=== PATIENT | female | born 1945 | race Caucasian/White ===

== ENCOUNTER 2017-01-18 09:19 | Inpatient (IN) | payer OTHER ==
[2016-12-08 14:36] VITALS: BMI 29.0
--- NOTE | 2016-12-08 15:06 | PAT Medication Instructions ---
Service Date Dec 08, 2016. Current Home Medication List Atorvastatin (Lipitor), 40 MG PO QPM Calcitriol (Rocaltrol Cap), 0.5 MCG PO QPM Carvedilol (Coreg), 1 TAB PO BID Cholecalciferol (Vitamin D3), 1 TAB PO BID Flecainide (Tambocor), 100 MG PO BID Furosemide (Lasix), 40 MG PO QAM Hydrocodone/Acetaminophen 10MG/325MG ([place] 10MG/325MG), 1-2 TABS PO Q4H PRN for Pain Levothyroxine Sodium (Levothyroxine Sodium), 1 TAB PO QAM Pantoprazole (Protonix), 40 MG PO QAM Warfarin Sod (Coumadin), 1 TAB PO QAM Medication Instructions For Your Scheduled Surgery - Instructions to be given by prescribing physician (Dr. Boggs): Warfarin Sod (Coumadin), 1 TAB PO QAM - Hold the following medications the morning of surgery: Furosemide (Lasix), 40 MG PO QAM Cholecalciferol (Vitamin D3), 1 TAB PO BID - Take the following medications the morning of surgery with a sip of water OTHERWISE NOTHING TO EAT OR DRINK AFTER MIDNIGHT: Levothyroxine Sodium (Levothyroxine Sodium), 1 TAB PO QAM Pantoprazole (Protonix), 40 MG PO QAM Carvedilol (Coreg), 1 TAB PO BID Flecainide (Tambocor), 100 MG PO BID Hydrocodone/Acetaminophen 10MG/325MG ([place] 10MG/325MG), 1-2 TABS PO Q4H PRN for Pain (may take if needed up to 4 hours prior to surgery) - Take the following medications as scheduled the night before surgery: Atorvastatin (Lipitor), 40 MG PO QPM Calcitriol (Rocaltrol Cap), 0.5 MCG PO QPM Carvedilol (Coreg), 1 TAB PO BID Flecainide (Tambocor), 100 MG PO BID Cholecalciferol (Vitamin D3), 1 TAB PO BID Hydrocodone/Acetaminophen 10MG/325MG ([place] 10MG/325MG), 1-2 TABS PO Q4H PRN for Pain If you have any questions please call us at [phone] or [phone] or [phone]
[2016-12-08 15:32] LABS: BASO % 0.1 %; BASO ABS # 0.01 K/uL (0-0.2); COMPLETE YES; EOS % 2.1 %; HEMATOCRIT 37.5 % (37-47); IG% 0.4 %; LYMPH % 27.9 %; LYMPH ABS # 2.02 K/uL (1.2-3.4); MEAN CELL VOLUME 90.8 fL (80-100); MEAN CORPUSCULAR HEMOGLOBIN 30.5 pg (25-34); MEAN CORPUSCULAR HGB CONC 33.6 g/dl (32-36); MEAN PLATELET VOLUME 9.9 fL (7.4-10.4); MONO % 9.8 %; NEUT % 59.7 %; PLATELET COUNT 269 K/uL (130-400); RED BLOOD COUNT 4.13 M/uL (4.2-5.4); WHITE BLOOD COUNT 7.23 K/uL (4.8-10.8)
--- NOTE | 2016-12-08 15:33 | DIAGNOSTIC IMAGING REPORT ---
CHEST 2 VIEWS ROUTINE CLINICAL HISTORY: Preoperative evaluation. COMPARISON STUDY: No previous studies for comparison. FINDINGS: Lung volumes are normal. There is no pneumothorax or pleural effusion. There is moderate enlargement of the cardiac silhouette. Patient is rotated. Left heart border is obscured. IMPRESSION: 1. No acute cardiopulmonary findings. 2. Moderate enlargement of the cardiac silhouette. Electronically signed by: Poli Cruz M.D. 12/08/2016 3:32 PM Dictated Date/Time: 12/08/2016 3:30 PM
[2016-12-08 15:52] LABS: URINE APPEARANCE CLOUDY (CLEAR); URINE BILIRUBIN NEG (NEG); URINE COLOR DK YELLOW; URINE EPITHELIAL CELL AUTO >30 /lpf (0-5); URINE NITRITE NEG (NEG); URINE SPECIFIC GRAVITY 1.027 (1.000-1.030); UROBILINOGEN NEG (NEG); ZZUR CULT IF INDIC CLEAN CATCH NO
[2016-12-08 15:59] LABS: INR 2.6 (0.9-1.1); PARTIAL THROMBOPLASTIN RATIO 1.9; PROTHROMBIN TIME (PATIENT) 28.5 SECONDS (9.0-12.0)
[2016-12-08 16:00] LABS: MANUAL MICROSCOPIC REQUIRED? NO; REVIEW REQ? NO
[2016-12-08 16:43] LABS: CALCIUM 9.6 mg/dl (8.5-10.1); CREATININE 1.2 mg/dl (0.60-1.20); POTASSIUM 3.7 mmol/L (3.5-5.1)
--- NOTE | 2017-01-04 16:14 | History and Physical ---
History & Physical Date Jan 04, 2017. Chief Complaint left knee pain History of Present Illness The patient is a 71 year old female with complaints of left knee pain x several year. Patient rates her pain a 7-8/10 at worst. Patient has failed PT, injections, and narcotics. She is scheduled for left TKA. Additional History Hepatic Disease: No Endocrine Disorder: No Kidney Disease: No Hypertension: No Heart Disease: No Bleeding Tendencies: No Infectious Diseases: No Other: Afib Thyroid disease Hypercholesterolemia Denies CAD, DM DVT Allergies Coded Allergies: Aspirin (Verified Allergy, Unknown, SHORTNESS OF BREATH, DIFFICULTY BREATHING, 12/08/16) Home Medications Scheduled Atorvastatin (Lipitor), 40 MG PO QPM Calcitriol (Rocaltrol Cap), 0.5 MCG PO QPM Carvedilol (Coreg), 1 TAB PO BID Cholecalciferol (Vitamin D3), 1 TAB PO BID Flecainide (Tambocor), 100 MG PO BID Furosemide (Lasix), 40 MG PO QAM Levothyroxine Sodium (Levothyroxine Sodium), 1 TAB PO QAM Pantoprazole (Protonix), 40 MG PO QAM Warfarin Sod (Coumadin), 1 TAB PO QAM Scheduled PRN Hydrocodone/Acetaminophen 10MG/325MG ([place] 10MG/325MG), 1-2 TABS PO Q4H PRN for Pain Physical Examination Skin: warm/dry, no rash Eyes: normal inspection, EOMI, sclerae normal ENT: normal ENT inspection, pharynx normal Head: normocephalic, atraumatic Neck: supple, no adenopathy, trachea midline Respiratory/Chest: lungs clear, normal breath sounds, no respiratory distress Cardiovascular: regular rate, rhythm, no edema, no murmur Abdomen / GI: normal bowel sounds, non tender Back: normal inspection Extremities: normal inspection, normal range of motion, + pertinent finding ( neutral allignment, ROM 0-120, +1laxity ) Neurologic/Psych: no motor/sensory deficits, alert, normal reflexes, oriented x 3 Diagnosis DJD left knee Plan of Treatment Patient will be admitted for left TKA with Dr. Chung.
[2017-01-18] VITALS (9 sets, daily range): BP systolic 122–164; BP diastolic 68–77; PULSE 58–75; TEMP 36.4–36.6; O2SAT 97–100; Ht 170.2 cm; Wt 84.2 kg
[~2017-01-18] VITALS: Ht 170.2 cm; Wt 84.2 kg
[2017-01-18] MEDS: TRANEXAMIC ACID INJ 1,000 MG in SODIUM CHLORIDE 0.9% 100ML 100 ML IV SCH ×2 (06:30→11:39)
--- NOTE | 2017-01-18 08:08 | History & Physical Bridge Note ---
H&P Re-Evaluation Bridge Note: I have examined the patient, reviewed the History & Physical and in the interval since the performance of the History & Physical I have noted the following changes of clinical significance: No changes noted
[~2017-01-18 09:19] MED LIST: ACETAMINOPHEN 500 MG TAB PO SCH; ATOR-24 PO; ATROPINE SULFATE 0.1 MG/ML 5ML SYR IV PRN; BUPIVACAINE 0.25% 30 ML VIAL ONE; BUPIVACAINE 0.5 % 5 MG/1 ML PF 10ML VIAL ONE; CALC0.2510 PO; CARV12.52 PO; CEFAZOLIN 2000 MG/60 ML D5W 60 ML IV SCH; CHOL20007 PO; CMD5 PO; CeleBREX 200 MG CAP PO SCH; DEXAMETHASONE 4 MG TAB PO SCH; EpHEDrine SULFATE INJ 50 MG/ML AMP IV PRN; FAMOTIDINE 20 MG TAB PO SCH; FENTANYL CITRATE INJ 50 MCG/1 ML 2 ML VIAL IV PRN; FLEC100T21 PO; FRS/40 PO; GABAPENTIN 300 MG CAP PO SCH; HYDR-4079 PO; LACTATED RINGER'S 1000ML 1,000 ML IV SCH; LACTATED RINGER'S 1000ML IV SCH; LEVO100T7 PO; METOCLOPRAMIDE HCL 10 MG TAB PO SCH; ONDANSETRON INJ 2 MG/ML 2 ML VIAL IV PRN; PANT40TA PO; ROPIVACAINE 5MG/ML 30 ML 150 MG, BUPIVACAINE/EPINEPHR 0.5% MPF 30 ML, DEXAMETHASONE INJ... INFIL SCH; ROPIVACAINE 5MG/ML 30 ML 150 MG, BUPIVACAINE/EPINEPHR 0.5% MPF 30 ML, KETOROLAC TROMETH... INFIL SCH
[2017-01-18] MEDS ORDERED: FENTANYL CITRATE INJ 50 MCG/1 ML 2 ML VIAL ONE (10:14)
[2017-01-18] MEDS ORDERED: MIDAZOLAM HCL 1 MG/ML 2ML VIAL ONE (10:14)
[2017-01-18 10:17] LABS: PARTIAL THROMBOPLASTIN RATIO 1.3; PROTHROMBIN TIME (PATIENT) 10.9 SECONDS (9.0-12.0)
[2017-01-18] MEDS ORDERED: ORTHO JOINT ANESTHETIC ONE (11:49)
[2017-01-18] MEDS ORDERED: POVIDONE-IODINE OP SOLN 30 ML BTL ONE (11:49)
[2017-01-18] MEDS ORDERED: BACITRACIN 50000 UNIT VIAL ONE (11:49)
[2017-01-18] MEDS ORDERED: LIDOCAINE HCL 2% 2 ML VIAL (20MG/ML) ONE (12:27)
[2017-01-18] MEDS ORDERED: PROPOFOL IV EMULSION 10 MG/ML 20 ML VIAL IV ONE (12:27)
--- NOTE | 2017-01-18 13:19 | [facility] Operative Report ---
Operative Report Operative Date Jan 18, 2017. Pre-Operative Diagnosis Left Knee Degenerative Joint Disease Post-Operative Diagnosis Left Knee Degenerative Joint Disease Procedure(s) Performed Left Total Knee Arthroplasty, Cemented utilizing Fisher nephew journey to non-block Fisher & Nephew arthro-plasty size 4 femur 3 tibia Poly-[address] Chung [employer] Dies Surgeon(s) Zack Naidu PA-C Estimated Blood Loss 5 mL Findings Severe end-stage tricompartmental degenerative joint disease left knee not responsive to conservative management including physical therapy Roto-Rest activity modification and bracing and injections Specimens A: Left Knee Bone and Tissue Complication(s) None Disposition Recovery Room / PACU Indications Severe chronic compartmental degenerative joint disease left knee unresponsive to conservative therapy including physical therapy anti-inflammatories relative rest and activity modification and injections Description of Procedure After proper prepping and draping of the left lower extremity anterior midline incision was made over the region of the extensor extensor mechanism after meticulous hemostasis was obtained and maintained in subcutaneous tissues a medial parapatellar incision was made The patella was subluxed lateralward the medial lateral gutter were cleaned from any hypertrophic synovitis and scar tissue of the distal femoral block was placed and the distal femoral osteotomy cut was made subsequently the chamfers anterior and posterior osteotomy cuts were made utilizing the 4-in-1 block the tibia was subsequently subluxed anteriorward medial and ateral meniscal remnants were excised in their entirety remnants of the anterior and posterior cruciate ligaments were excised in their entirety excellent exposure of the proximal tibia was obtained the tibial osteotomy guide was placed on the proximal tibial osteotomy cut was made once again the knee was irrigated with copious amounts of sterile saline solution the patella was subsequently everted lateralward thickened scar tissue around the patella was removed the patella was subsequently cut utilizing a freehand technique and was drilled prepared for final preparation and placement of patella socially flexion-extension gaps were checked and the equal and symmetric trials were placed to the appropriate femoral and tibial trials with poly-spacer being placed for equal flexion and extension gaps and full range of motion including extension to 0 and flexion to 140 the trial components after having been taken to recovery range of motion was subsequently removed meticulous hemostasis was obtained and maintained subsequently a knee block injection of joint cocktail including ropivacaine 0.5% 150 mg. Bupivacaine 0.5 % epinephrine 1-200,030 mL's toradol 30 mg dexamethasone 4 mg ketamine 10 mg clonidine 100 micrograms normal saline solution 30 mg was infiltrated into the soft tissues of the posterior knee medial lateral gutters and periosteal synovium special attention was paid to protect neurovascular structures at all times subsequently trial components having been removed the knee was irrigated with sterile saline solution. debris was removed the proximal tibia was subsequently prepared and was made ready for the placement of the tibial component tibial component was also cemented and tamped into position the femoral component was subsequently placed and cemented in the position the patellar component was subsequently cemented in position because hemostasis once again obtained and maintained wound having been thoroughly irrigated with debridement and debridement lavage was performed as well as a medial parapatellar incision closed with #1 Vicryl in interrupted fashion subcutaneous was closed with #2 Vicryl skin was closed with skin clips. PA-C was necessary for prepping and drapping as well as wound closure of deep fascia Sub cutaneous tissue and skin and was necessary for the case. A sterile compressive dressing was placed patient was taken to recovery in stable condition of report dictated by Sheldon I attest to the content of the Intraoperative Record and any orders documented therein. Any exceptions are noted below. I attest to the content of the Intraoperative Record and any orders documented therein. Any exceptions are noted below.
[2017-01-18] MEDS ORDERED: MoRPHine SULFATE 2 MG/ML CARP IV PRN (14:00)
[2017-01-18] MEDS ORDERED: BISACODYL 10 MG SUPP PR PRN (14:00)
[2017-01-18] MEDS ORDERED: ALUMINUM/MAGNESIUM/SIMETH (MAALOX MAX) 30 ML UDC PO PRN (14:00)
[2017-01-18] MEDS ORDERED: MAGNESIUM HYDROXIDE SUSP 30 ML UDC PO PRN (14:00)
[2017-01-18] MEDS ORDERED: ONDANSETRON INJ 2 MG/ML 2 ML VIAL IV PRN (14:00)
[2017-01-18] MEDS ORDERED: MoRPHine SULFATE 4 MG/ML 1 ML CARP\\VIAL IV PRN (14:15)
[2017-01-18] MEDS ORDERED: MoRPHine SULFATE 10 MG/ML CARP/VIAL IV PRN (14:15)
--- NOTE | 2017-01-18 14:35 | DIAGNOSTIC IMAGING REPORT ---
LEFT KNEE 1 OR 2 VIEWS ROUTINE HISTORY: 71 years-old Female AP/LATERAL IN PACU LEFT KNEE left knee arthroplasty COMPARISON: None available TECHNIQUE: Frontal and crosstable lateral views of the left knee FINDINGS: Recent left total knee arthroplasty with patellar resurfacing. Alignment is satisfactory. There is no periprosthetic fracture. Expected postsurgical swelling and deep tissue air seen about the knee with surgical drain in place. No retained radiopaque foreign body is seen. IMPRESSION: Status post left total knee arthroplasty and patellar resurfacing with satisfactory alignment. The above report was generated using voice recognition software. It may contain grammatical, syntax or spelling errors. Electronically signed by: Harrison Valverde M.D. 01/18/2017 2:34 PM Dictated Date/Time: 01/18/2017 2:31 PM
--- NOTE | 2017-01-18 14:37 | Anesthesiology Progress Note ---
Anesthesia Post Op Note Date & Time Jan 18, 2017 at 14:37 Vital Signs Pain Intensity: 0 Vital Signs Past 12 Hours Date Time Temp Pulse Resp B/P (MAP) Pulse Ox O2 Delivery O2 Flow Rate FiO2 01/18/17 14:20 67 16 137/65 100 Nasal Cannula 2 01/18/17 14:10 70 16 131/65 100 Nasal Cannula 2 01/18/17 14:00 67 16 117/56 100 Mask 10 01/18/17 13:54 36.4 67 16 129/60 100 Mask 10 01/18/17 09:45 36.4 60 20 164/72 98 Room Air Notes Mental Status: alert / awake / arousable, participated in evaluation Pt Amnestic to Procedure: Yes Nausea / Vomiting: adequately controlled Pain: adequately controlled Airway Patency, RR, SpO2: stable & adequate BP & HR: stable & adequate Hydration State: stable & adequate Neuraxial Anesthesia: was administered, sensory block is resolving Anesthetic Complications: no major complications apparent
[2017-01-18] MEDS ORDERED: WARFARIN SOD 5 MG TAB PO ONE (16:00)
[2017-01-18] MEDS: D5W AND 1/2NSS + 20MEQ KCL 1,000 ML IV SCH (16:08)
[2017-01-18] MEDS: FERROUS GLUCONATE 324 MG TAB PO SCH (17:53)
[2017-01-18] MEDS: OXYCODONE HCL IR 5 MG TAB (IMMEDIATE RELEASE) PO PRN ×2 (19:16→23:18)
--- NOTE | 2017-01-18 19:26 | INTERNAL MEDICINE CONSULTATION ---
DATE OF CONSULTATION: 01/18/2017 REASON FOR CONSULTATION: Medical co-care. HISTORY OF PRESENT ILLNESS: The patient is a 71-year-old female with past medical history of hypertension, dyslipidemia and paroxysmal atrial fibrillation on Coumadin. The patient had been complaining of left knee pain and arthritis for many years. She failed outpatient conservative management and presented today for an elective left total knee arthroplasty. The procedure went uneventful and we were consulted for medical co-care. PAST MEDICAL HISTORY: As HPI plus hypothyroidism and a questionable history of diastolic congestive heart failure, currently stable. ALLERGIES: ASPIRIN. HOME MEDICATIONS: 1. Lipitor. 2. Calcitriol. 3. Carvedilol. 4. Vitamin D. 5. Flecainide. 6. Lasix. 7. Levothyroxine. 8. Protonix. 9. Coumadin. SOCIAL HISTORY: The patient does not drink or smoke. FAMILY HISTORY: Diabetes in her mother's side. PHYSICAL EXAMINATION: VITAL SIGNS: Temperature 36.4, heart rate 67, respirations 16, blood pressure 129/60, pulse ox is 100% on 2 liters. GENERAL: The patient is slightly obese, not in acute distress. HEENT: No jaundice, no pallor. Wet mucous membrane. NECK: Supple. HEART: S1, S2 normal. No gallop, rub or murmur. LUNGS: Clear to auscultation bilaterally. Normal chest wall expansion. ABDOMEN: Soft, nontender, nondistended. NEUROLOGIC: Awake, alert, oriented to time, place, and person. Moves all extremities. Sensation intact. Cranial nerves II through XII appear to be intact. EXTREMITIES: No edema, clubbing or cyanosis. The patient can wiggle her left foot toe, and sensation intact in her left toes. Left knee was wrapped status post surgery. PSYCHIATRIC: Normal affect and process of thinking. SKIN: No rash or erythema and exposed skin areas. AVAILABLE LABS: The patient did have a recent INR that was within normal limits prior to the surgery. Her INR back in November was between 2 and 3. The patient's creatinine ranges from based on previous labs ranges between 1.1 and 1.2. No labs ordered. After that except for the INR, creatinine in December 08 was 1.2 and hemoglobin was 12.6, white blood cell count was 7.2 and platelet count was 269. 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 RV/PA systolic pressure was mildly increased about 31 mmHg. ASSESSMENT: 1. Hypertension. 2. Dyslipidemia. 3. Hypothyroidism. 4. Degenerative joint disease, status post left total knee replacement. 5. Paroxysmal atrial fibrillation. PLAN: 1. Continue postop monitoring. Continue the patient's Lipitor and carvedilol. DVT prophylaxis/reinitiation of Coumadin for her atrial fibrillation will be left up to the primary team, I see that an order was written for reinitiating Coumadin 5 mg, but will leave it to the primary surgical team. 2. Pain management. 3. Order baseline labs in a.m. including CMP and CBC. 4. Physical therapy and occupational therapy as per primary team. Thank you for giving us the opportunity of participating in the care of Mrs. Delaney Hanley. LACIE
[2017-01-18] MEDS: OXYCODONE HCL 10 MG TABCR (OXYCONTIN) PO SCH (20:13)
[2017-01-18] MEDS: CEFAZOLIN IV 2,000 MG in DEXTROSE 5% 50ML 50 ML IV SCH (20:13)
[2017-01-18] MEDS: DOCUSATE SODIUM 100 MG CAP PO SCH (20:21)
[2017-01-18] MEDS: CARVEDILOL 12.5 MG TAB PO SCH (20:21)
[2017-01-18] MEDS: FLECAINIDE ACETATE 100 MG TAB PO SCH (20:22)
[2017-01-18] MEDS: CHOLECALCIFEROL 1000 INTER.UNIT TAB PO SCH (20:23)
[2017-01-18] MEDS ORDERED: SENNA 8.6 MG TAB PO SCH (21:00)
[2017-01-18] MEDS ORDERED: CALCITRIOL 0.25 MCG CAP PO SCH (21:00)
[2017-01-18] MEDS ORDERED: ATORVASTATIN 40 MG TAB PO SCH (21:00)
[2017-01-18] MEDS: ACETAMINOPHEN 500 MG TAB PO SCH (21:34)
[2017-01-19] MEDS: D5W AND 1/2NSS + 20MEQ KCL 1,000 ML IV SCH ×2 (01:08→11:30)
[2017-01-19 03:05] VITALS: BP 126/63; PULSE 60; TEMP 36.6; O2SAT 98
[2017-01-19] MEDS: CEFAZOLIN IV 2,000 MG in DEXTROSE 5% 50ML 50 ML IV SCH (04:24)
[2017-01-19] MEDS: OXYCODONE HCL IR 5 MG TAB (IMMEDIATE RELEASE) PO PRN ×3 (04:26→14:42)
[2017-01-19] MEDS: ACETAMINOPHEN 500 MG TAB PO SCH ×2 (05:41→14:07)
[2017-01-19] MEDS ORDERED: LEVOTHYROXINE 100 MCG TAB PO SCH (06:00)
[2017-01-19 06:42] LABS: HEMATOCRIT 31.4 % (37-47); MEAN CELL VOLUME 89.2 fL (80-100); MEAN CORPUSCULAR HEMOGLOBIN 28.7 pg (25-34); MEAN CORPUSCULAR HGB CONC 32.2 g/dl (32-36); MEAN PLATELET VOLUME 9.5 fL (7.4-10.4); PLATELET COUNT 199 K/uL (130-400); RED BLOOD COUNT 3.52 M/uL (4.2-5.4)
[2017-01-19 06:49] LABS: INR 1.1 (0.9-1.1); PROTHROMBIN TIME (PATIENT) 11.3 SECONDS (9.0-12.0)
[2017-01-19 07:13] LABS: BUN/CREATININE RATIO 12.5 (10-20); CREATININE 1.1 mg/dl (0.60-1.20); POTASSIUM 4.5 mmol/L (3.5-5.1)
--- NOTE | 2017-01-19 07:31 | Orthopedic Progress Note ---
Orthopedic Progress Note Date of Service Jan 19, 2017. Subjective Post OP Day: 1 Reports: feeling well, Denies: complaints Additional Notes: Pt feeling well this AM. She was able to sleep last night. Hoping to go home today. Objective calves soft nontender, N/V intact, dressing C/D/I, A&O x3, toes mobile, hemovac drainage (50ml latest shift) Date Time Temp Pulse Resp B/P (MAP) Pulse Ox O2 Delivery O2 Flow Rate FiO2 01/19/17 03:05 36.6 60 17 126/63 (84) 98 Room Air 01/18/17 23:16 Room Air 01/18/17 23:07 36.6 64 16 146/76 (99) 98 Room Air 01/18/17 20:16 72 156/76 (102) 01/18/17 19:20 36.5 75 18 153/73 (99) 97 Room Air 01/18/17 17:40 67 18 127/75 (92) 100 Nasal Cannula 2.0 01/18/17 16:40 63 16 136/77 (96) 01/18/17 15:40 62 16 122/68 (86) 01/18/17 15:10 58 16 125/76 (92) 100 Nasal Cannula 2.0 01/18/17 14:40 100 Nasal Cannula 2.0 01/18/17 14:40 36.4 63 16 130/74 (92) 100 Nasal Cannula 2.0 01/18/17 14:40 100 Nasal Cannula 2.0 01/18/17 14:20 67 16 137/65 100 Nasal Cannula 2 01/18/17 14:10 70 16 131/65 100 Nasal Cannula 2 01/18/17 14:00 67 16 117/56 100 Mask 10 01/18/17 13:54 36.4 67 16 129/60 100 Mask 10 01/18/17 09:45 36.4 60 20 164/72 98 Room Air Laboratory Results 24 Hours: Test 01/18/17 09:54 01/19/17 06:26 Prothromb Time International Ratio 1.0 1.1 Prothrombin Time 10.9 SECONDS 11.3 SECONDS Hematocrit 31.4 % Hemoglobin 10.1 g/dL Assessment & Plan Assessment: POD 1 s/p Left TKA Plan: PT/OT Planning for home with Home Health Services Possible dc to home today pending PT/OT progression Inhouse Planning Pain Management: Oxycontin, Morphine, PO Tylenol, Oxy IR DVT Prophylaxis: TEDs, SCDs, Coumadin Discharge Planning Discharge Planning: home with home health Pain Management: Oxycontin, PO Tylenol, Oxy IR DVT Prophylaxis: TEDs, Coumadin Therapy: Physical Therapy
[2017-01-19] MEDS ORDERED: ACET-24 PO (07:33)
[2017-01-19] MEDS ORDERED: OXYSR10 PO (07:33)
[2017-01-19] MEDS ORDERED: SNK PO (07:33)
[2017-01-19] MEDS ORDERED: RXC5 PO (07:33)
--- NOTE | 2017-01-19 07:39 | Discharge Instructions ---
Discharge Instructions Date of Service Jan 19, 2017. Admission Reason for Admission: Left Knee Degenerative Joint Disease Discharge Discharge Diagnosis / Problem: Left Knee Djd Discharge Goals Goal(s): Decrease discomfort, Improve function Activity Recommendations Activity Limitations: per Instructions/Follow-up section Weightbearing Status: Left weightbearing (as tolerated) . Instructions / Follow-Up Instructions / Follow-Up ACTIVITY RECOMMENDATIONS: SELF CARE INSTRUCTIONS AFTER TOTAL KNEE REPLACEMENT A. You may need to continue a physical therapy program after discharge from the hospital. There are several options available to you. Your doctor will assist you in selecting the best one for you. 1. An out-patient facility 2 to 3 times a week for therapy or home therapy. 2. Continue working on all exercises taught to you in the hospital. Your goals should be to increase bending of your knee to 90 degrees and beyond and to fully straighten your knee. B. You may progress at your own pace from walking with a walker or crutches to a cane; then to no assistive devices. C. Make walking a part of your daily routine. Be up as much as comfortable with rest periods throughout the day. Rest with leg elevation is very important. Use the ice wrap frequently for the first 3-4 weeks. D. There are no restrictions on activities. You may ride in a car, shop, participate in retail loan originator assistant and all social activities. E. Wear the long elastic stockings (CARTER hose) 20 hours a day for 2 weeks after surgery. They can be removed several times a day for laundering and for a bath. F. You may shower, no tub baths until cleared by your doctor. SPECIAL CARE INSTRUCTIONS: VERY IMPORTANT TO READ AND REVIEW A. There are a few signs you need to watch for after you are home. Call [facility] if you notice any of the followin. Increased severe knee pain. Some pain is expected especially when you exercise. 2. Increased swelling in your leg or knee; pain or swelling of the calf muscle in either lower leg. 3. Any fluid drainage from the incision. 4. Shortness of breath or chest pain. B. Please call [facility] at if you have any concerns or questions about your operation or recovery. The doctor or his nurse will return your call promptly. C. You must take antibiotics before dental work, bladder, bowel or other surgery. Your doctor will provide you with a permanent care to carry describing this precaution. IMPORTANT: * REMEMBER TO TAKE ASPIRIN, 81 MG, TWICE DAILY FOR 4 WEEKS UNLESS OTHERWISE DIRECTED. THIS IS YOUR BLOOD THINNER. * HIGH RISK PATIENTS MAY BE PRESCRIBED A STRONGER BLOOD THINNER. THIS WILL BE PROVIDED AT DISCHARGE. * CALL IF INCREASED PAIN, REDNESS, DRAINAGE OR FEVER GREATER THAT 101. * WEAR CARTER HOSE 20 HOURS PER DAY FOR 2 WEEKS. * DERMABOND Prineo- This is a mesh tape dressing that is covered with glue. It should remain in place until the incision is properly healed, usually 10-14 days. This dressing is designed to naturally slough off. You may trim the excess mesh tape as it peels off. Incision may be briefly wet in a shower. Dry immediately by blotting with a clean, dry towel. Do not bath or swim until instructed by your doctor. Do not scratch, rub, or pick at the dressing. Do not apply any topical ointments or lotions until dressing is completely removed and/or instructed by your doctor. There may be a small piece of suture material at one end of your incision. Do not pull or trim this. If it is bothersome or catching on clothing, you may cover it with a band-aid. . FOLLOW UP VISIT: If appointment is not already scheduled: Please call [facility] to make a follow-up appointment for 2 weeks after your surgery at . Current Hospital Diet Patient's current hospital diet: Regular Diet Discharge Diet Recommended Diet: Regular Diet Procedures Procedures Performed: Left Total Knee Arthroplasty, Cemented utilizing Fisher nephew journey to non-block Fisher & Nephew arthro-plasty size 4 femur 3 tibia Poly-29 oval patella Pending Studies Studies pending at discharge: no Medical Emergencies . Who to Call and When: Medical Emergencies: If at any time you feel your situation is an emergency, please call 911 immediately. . Non-Emergent Contact Non-Emergency issues call your: Surgeon Call Non-Emergent contact if: temperature is above 101.5, your pain is not controlled, your pain is worsening, wound has increased drainage, wound has increased redness . "Provider Documentation" section prepared by Zack Naidu. . VTE Core Measure Inpt VTE Proph given/why not?: Warfarin (Coumadin), T.E.D. Stockings, SCD's [place] Drug Monitoring Program Search Results: patient reviewed within database, no issues identified
[2017-01-19 08:00] VITALS: BP 120/70; PULSE 68; TEMP 36.6; O2SAT 98
[2017-01-19 08:16] VITALS: O2SAT 98
[2017-01-19] MEDS: DOCUSATE SODIUM 100 MG CAP PO SCH (08:53)
[2017-01-19] MEDS: OXYCODONE HCL 10 MG TABCR (OXYCONTIN) PO SCH (08:55)
[2017-01-19] MEDS: CHOLECALCIFEROL 1000 INTER.UNIT TAB PO SCH (08:56)
[2017-01-19] MEDS: CARVEDILOL 12.5 MG TAB PO SCH (08:56)
[2017-01-19] MEDS: FLECAINIDE ACETATE 100 MG TAB PO SCH (08:56)
[2017-01-19] MEDS: FERROUS GLUCONATE 324 MG TAB PO SCH ×2 (08:57→12:56)
[2017-01-19] MEDS ORDERED: MULTIVITAMIN TAB PO SCH (09:00)
[2017-01-19] MEDS ORDERED: PANTOprazole SOD 40 MG TAB PO SCH (09:00)
--- NOTE | 2017-01-19 10:19 | Anesthesiology Progress Note ---
Anesthesia Post Op Note Date & Time Jan 19, 2017 at 10:18 Vital Signs Vital Signs Past 12 Hours Date Time Temp Pulse Resp B/P (MAP) Pulse Ox O2 Delivery O2 Flow Rate FiO2 01/19/17 08:16 98 Room Air 01/19/17 08:00 36.6 68 18 120/70 (87) 98 Room Air 01/19/17 07:20 Room Air 01/19/17 03:05 36.6 60 17 126/63 (84) 98 Room Air 01/18/17 23:16 Room Air 01/18/17 23:07 36.6 64 16 146/76 (99) 98 Room Air Notes Mental Status: alert / awake / arousable, participated in evaluation Pt Amnestic to Procedure: Yes Nausea / Vomiting: adequately controlled Pain: adequately controlled Airway Patency, RR, SpO2: stable & adequate BP & HR: stable & adequate Hydration State: stable & adequate Neuraxial Anesthesia: sensory block resolved Anesthetic Complications: no major complications apparent
[2017-01-19 12:00] VITALS: BP 120/70; PULSE 54; TEMP 36.4; O2SAT 98
[2017-01-19 13:16] VITALS: BP 120/70; PULSE 54; TEMP 36.4; O2SAT 98
--- NOTE | 2017-01-19 13:25 | Hospitalist Progress Note ---
Hospitalist Progress Note Date of Service Jan 19, 2017. (Triny Abdi ., IVYC) Subjective Pt evaluation today including: conversation w/ patient, physical exam, chart review, lab review, review of inpatient medication list Pain: Well controlled PO Intake: Tolerating PO diet Voiding: no voiding problems The patient reports feeling well and is hopeful about going home today. She states that her left knee pain is well controlled and she did well with physical therapy. She is tolerating a PO diet well. She is urinating without difficulties. She is passing gas and had a bowel movement this morning. The patient denies fevers, chills, sweats, chest pain, palpitations, claudication, cough, wheezing, shortness of breath, nausea, vomiting, abdominal pain, dysuria , hematuria, urinary retention, paralysis, weakness, numbness and tingling. Additional Comments: See HPI for pertinent positives and negatives. All other systems reviewed and negative. (Triny Abdi ., AJAY-C) Objective Vital Signs Date Time Temp Pulse Resp B/P (MAP) Pulse Ox O2 Delivery O2 Flow Rate FiO2 01/19/17 12:00 36.4 54 16 120/70 (87) 98 Room Air 01/19/17 08:16 98 Room Air 01/19/17 08:00 36.6 68 18 120/70 (87) 98 Room Air 01/19/17 07:20 Room Air 01/19/17 03:05 36.6 60 17 126/63 (84) 98 Room Air 01/18/17 23:16 Room Air 01/18/17 23:07 36.6 64 16 146/76 (99) 98 Room Air 01/18/17 20:16 72 156/76 (102) 01/18/17 19:20 36.5 75 18 153/73 (99) 97 Room Air 01/18/17 17:40 67 18 127/75 (92) 100 Nasal Cannula 2.0 01/18/17 16:40 63 16 136/77 (96) 01/18/17 15:40 62 16 122/68 (86) 01/18/17 15:10 58 16 125/76 (92) 100 Nasal Cannula 2.0 01/18/17 14:40 100 Nasal Cannula 2.0 01/18/17 14:40 36.4 63 16 130/74 (92) 100 Nasal Cannula 2.0 01/18/17 14:40 100 Nasal Cannula 2.0 01/18/17 14:20 67 16 137/65 100 Nasal Cannula 2 01/18/17 14:10 70 16 131/65 100 Nasal Cannula 2 01/18/17 14:00 67 16 117/56 100 Mask 10 01/18/17 13:54 36.4 67 16 129/60 100 Mask 10 (Triny Abdi ., PA-C) Physical Exam Notes: General appearance: Well-developed, well-nourished, no apparent distress Head: Normocephalic, atraumatic Eyes: Normal inspection, PERRL, EOMI ENT: Normal ENT inspection, hearing grossly normal, pharynx normal Neck: Supple, no JVD, trachea midline Respiratory/Chest: Lungs clear to auscultation, normal breath sounds, no respiratory distress Cardiovascular: +Systolic murmur. Regular rate & rhythm, no gallop Abdomen/GI: Normal bowel sounds, non-tender, soft Extremities/Musculoskeletal: Normal inspection, no calf tenderness, no pedal edema Neurological/Psych: Alert, normal mood/affect, oriented x 3 Skin: Normal color, warm/dry, no rash (Triny Abdi ., PA-C) Laboratory Results Last 24 Hours Test 01/19/17 06:26 White Blood Count 12.00 K/uL Red Blood Count 3.52 M/uL Hemoglobin 10.1 g/dL Hematocrit 31.4 % Mean Corpuscular Volume 89.2 fL Mean Corpuscular Hemoglobin 28.7 pg Mean Corpuscular Hemoglobin Concent 32.2 g/dl RDW Standard Deviation 44.7 fL RDW Coefficient of Variation 13.7 % Platelet Count 199 K/uL Mean Platelet Volume 9.5 fL Prothrombin Time 11.3 SECONDS Prothromb Time International Ratio 1.1 Sodium Level 141 mmol/L Potassium Level 4.5 mmol/L Chloride Level 107 mmol/L Carbon Dioxide Level 29 mmol/L Anion Gap 5.0 mmol/L Blood Urea Nitrogen 14 mg/dl Creatinine 1.10 mg/dl Est Creatinine Clear Calc Drug Dose 53.1 ml/min Estimated GFR () 58.9 Estimated GFR (Non- 50.8 BUN/Creatinine Ratio 12.5 Random Glucose 150 mg/dl Calcium Level 9.0 mg/dl Hepatitis C Antibody Screen NEG (Triny Abdi ., PA-C) Assessment and Plan 71 y/o female with a history of HTN, HLD, hypothyroidism and paroxysmal a-fib who presents s/p left TKA with Dr. Chung on 01/18 for medical management. -Pain management, DVT prophylaxis, and PT/OT as per primary team HTN--stable -Continue Coreg 12.5 mg PO BID. Hold if HR less than 60 or SBP less than 100 HLD -Continue Lipitor 40 mg PO qd Hypothyroidism -Continue Synthroid 100 mcg PO qd Paroxysmal a-fib--stable, currently in SR -Continue flecainide 100 mg PO BID -Continue warfarin 5 mg PO qd when okay with primary team Code Status -Level I, FULL RESUSCITATION STATUS Pt. is stable from a medical standpoint, we will sign off. Clear for discharge as per primary team. (Triny Abdi ., PA-C) I agree with PA assessment and plan and have personally seen and examined pt myself Resting comfortably in bed Labs and vitals reviewed S/P left TKA No pain noted PT/OT, DVT ppx and dispo per primary team Stable for DC from medical perspective (Derrell England D.O.)
[2017-01-19] MEDS ORDERED: WARFARIN SOD 5 MG TAB PO SCH (16:00)
--- NOTE | 2017-01-20 14:17 | DISCHARGE SUMMARY ---
DISCHARGE DIAGNOSIS: Degenerative joint disease left knee. SECONDARY DIAGNOSES: Atrial fibrillation, thyroid disease, and hypercholesterolemia. CONSULTS: Dr. Neumann. COMPLICATIONS: None. PROCEDURES: Left total knee arthroplasty performed by Dr. Chung on 01/18/2017. BRIEF HISTORY OF PRESENT ILLNESS: As dictated in the history and physical. HOSPITAL SUMMARY: The patient was admitted on the above-noted date and had the above-noted surgery performed, which she tolerated well. Dr. Neumann was consulted for postoperative medical management and the hospitalist team continued to follow her during her stay. On her first postoperative day, she was feeling well and had no complaints. She was able to sleep through the night and was hoping to go home the same day. Calves were soft and nontender, neurovascularly intact. Dressings were clean, dry and intact. Toes were mobile. Vital signs were stable. She was afebrile and hemoglobin was 10.1. She was started on physical therapy protocol and continued on DVT prophylaxis and pain management. She was progressing well with her physical therapy. Medicine service had seen the patient and felt she was remaining medically stable and it was felt that she could be discharged to home. For further review, please see chart. LABORATORY AND X-RAY DATA: As per chart. DISCHARGE INSTRUCTIONS: The patient was discharged to home in satisfactory condition on 01/19/2017. DIET: Regular. ACTIVITY: Weightbearing as tolerated left lower extremity. Follow TK instruction sheets and special care instructions as noted. Follow up with Dr. Chung in 2 weeks. The patient is to call for appointment if one has not been made for you. DISCHARGE MEDICATIONS: Acetaminophen 1000 mg p.o. q. 8 hours for 30 days, OxyContin 10 mg p.o. q. 12 hours, oxycodone 5-10 mg p.o. q. 4 hours p.r.n., senna 17.2 mg p.o. at bedtime and resume home meds as listed. Stop taking Eden.
== END 2017-01-19 14:59 | disposition home health service (06) | DRG 470 ==
LOC: C.ACU 09:19 → C.3E 11:00 → ENRESERV 14:29
PROVIDERS: ADMIT Orthopaedic Surgery; ATTEND Orthopaedic Surgery
PROC: 0SRD0J9 Replacement of Left Knee Joint with Synthetic Substitute, Cemented, Open Approach (ICD-10-PCS; principal; 2017-01-18 12:00)
DX: M17.12 Unilateral primary osteoarthritis, left knee (principal); I48.0 Paroxysmal atrial fibrillation; E03.9 Hypothyroidism, unspecified; E78.5 Hyperlipidemia, unspecified; I10 Essential (primary) hypertension; Z79.899 Other long term (current) drug therapy

== ENCOUNTER 2017-10-25 06:03 | Inpatient (IN) | payer OTHER ==
[2017-10-13 15:28] VITALS: BMI 29.0
--- NOTE | 2017-10-13 15:58 | PAT Medication Instructions ---
Service Date Oct 13, 2017. Current Home Medication List Acetaminophen (Tylenol), 2 TAB PO UD PRN for Pain Atorvastatin (Lipitor), 40 MG PO QPM Calcitriol (Rocaltrol Cap), 0.5 MCG PO QPM Carvedilol (Coreg), 1 TAB PO BID Cholecalciferol (Vitamin D3), 1 TAB PO BID Flecainide (Tambocor), 100 MG PO BID Furosemide (Lasix), 40 MG PO QAM Levothyroxine Sodium (Levothyroxine Sodium), 1 TAB PO QAM Pantoprazole (Protonix), 40 MG PO Q2D Warfarin Sod (Coumadin), 1 TAB PO SEE NOTES Warfarin Sod (Warfarin Sodium), 6 MG PO SEE NOTES Medication Instructions For Your Scheduled Surgery -Check with your prescriber for instructions for: Warfarin Sod (Coumadin), 1 TAB PO SEE NOTES Warfarin Sod (Warfarin Sodium), 6 MG PO SEE NOTES - Hold the following medications the morning of surgery: Cholecalciferol (Vitamin D3), 1 TAB PO BID Furosemide (Lasix), 40 MG PO QAM - Take the following medications the morning of surgery with a sip of water: Acetaminophen (Tylenol), 2 TAB PO UD PRN for Pain (if needed, can be taken up to four hours before surgery) Carvedilol (Coreg), 1 TAB PO BID Flecainide (Tambocor), 100 MG PO BID Levothyroxine Sodium (Levothyroxine Sodium), 1 TAB PO QAM Pantoprazole (Protonix), 40 MG PO Q2D - Take the following medications as scheduled the night before surgery: Acetaminophen (Tylenol), 2 TAB PO UD PRN for Pain (if needed) Atorvastatin (Lipitor), 40 MG PO QPM Calcitriol (Rocaltrol Cap), 0.5 MCG PO QPM Carvedilol (Coreg), 1 TAB PO BID Cholecalciferol (Vitamin D3), 1 TAB PO BID Flecainide (Tambocor), 100 MG PO BID If you have any questions please call us at [phone] or [phone] or [phone]
[2017-10-13 16:24] LABS: INR 2.6 (0.9-1.1); PTT PATIENT 43.6 SECONDS (21.0-31.0)
[2017-10-13 16:32] LABS: ALBUMIN 3.6 gm/dl (3.4-5.0); CALCIUM 9.8 mg/dl (8.5-10.1); CREATININE 1.17 mg/dl (0.60-1.20); POTASSIUM 4.1 mmol/L (3.5-5.1)
[2017-10-13 17:45] LABS: BASO % 0.2 %; BASO ABS # 0.02 K/uL (0-0.2); EOS % 2.9 %; EOS ABS # 0.25 K/uL (0-0.5); IG# 0.07 K/uL (0.00-0.02); LYMPH % 23.9 %; LYMPH ABS # 2.04 K/uL (1.2-3.4); MEAN CELL VOLUME 90.7 fL (80-100); MEAN CORPUSCULAR HEMOGLOBIN 30.2 pg (25-34); MEAN CORPUSCULAR HGB CONC 33.3 g/dl (32-36); MEAN PLATELET VOLUME 9.8 fL (7.4-10.4); MONO % 9.2 %; MONO ABS # 0.79 K/uL (0.11-0.59); NEUT ABS # 5.38 K/uL (1.4-6.5); NUCLEATED RED BLOOD CELL ABS 0.06 K/uL (0-0); PLATELET COUNT 280 K/uL (130-400); RED CELL DISTRIBUTION WIDTH CV 13.8 % (11.5-14.5); RED CELL DISTRIBUTION WIDTH SD 45.5 fL (36.4-46.3); WHITE BLOOD COUNT 8.55 K/uL (4.8-10.8)
[2017-10-14 06:03] LABS: HEMOGLOBIN A1C 5.7 % (4.5-5.6)
--- NOTE | 2017-10-14 08:48 | HISTORY & PHYSICAL EXAMINATION ---
DATE OF ADMISSION: 10/25/2017 CHIEF COMPLAINT: Right hip pain. HISTORY OF PRESENT ILLNESS: Ms. Hanley is a 72-year-old female with a 2-year history of right hip pain. The patient rates her pain an 8/10. She has pain with her daily activities. She has limited standing and walking tolerance. Pain is worse with weightbearing. The patient has had Tylenol, PT, and injections in the past without relief. She has failed conservative treatment and is scheduled for a right hip replacement with Dr. Hummel. PAST MEDICAL HISTORY: CHF, hypercholesterolemia, hypertension, thyroid disease, atrial fibrillation. She denies heart disease, diabetes, or DVT. PAST SURGICAL HISTORY: Left TKA. SOCIAL HISTORY: The patient denies alcohol or tobacco use. She lives in a single-tono home with her and is retired. FAMILY HISTORY: Negative for DVT. MEDICATIONS: Furosemide 40 mg, Tirosint 100 mcg, flecainide 100 mg b.i.d., pantoprazole 40 mg daily, carvedilol 12.5 b.i.d., Coumadin 5-6 mg daily, Vitamin D3 1000 units, atorvastatin 40 mg, Calcitrate 250 mg. ALLERGIES: ASPIRIN CAUSES SWELLING AND ANAPHYLAXIS. REVIEW OF SYSTEMS: See HPI. Ten other systems reviewed, all negative. PHYSICAL EXAMINATION: VITAL SIGNS: Height 5 foot 7 inches, weight 170 pounds, BMI 27. GENERAL: This is a well-developed, well-nourished female, who is alert and oriented x3. Mood and affect are appropriate. HEENT: Normocephalic, atraumatic. Mucous membranes are moist and intact. NECK: Supple without lymphadenopathy. HEART: Regular rate and rhythm without murmurs, rubs, or gallops. LUNGS: Clear to auscultation without wheezes or rhonchi. ABDOMEN: Soft and nontender. Bowel sounds are equal and active. EXTREMITIES: No ecchymosis, redness, or warmth. Thighs and calves are soft and nontender. She walks with an antalgic gait. Range of motion is decreased. Movement also reproduces pain in the groin. She has trochanteric tenderness. She is neurovascularly intact with +5/5 strength. X-RAY EXAMINATION: AP and lateral views show joint space narrowing and osteophyte formation. IMPRESSION: Degenerative joint disease, right hip. PLAN: The patient will be admitted for a right total hip arthroplasty with Dr. Hummel. The patient will resume her Coumadin postoperatively. This is managed by Dr. Boggs. She will plan on home therapy upon discharge.
[2017-10-25] VITALS (8 sets, daily range): BP systolic 121–174; BP diastolic 68–75; PULSE 57–72; TEMP 36.3–36.4; O2SAT 95–100; Ht 170.2 cm; Wt 86.5 kg
[~2017-10-25] VITALS: Ht 170.2 cm; Wt 86.5 kg
[~2017-10-25 06:03] MED LIST changes: +ACET-1256 PO; -ATROPINE SULFATE 0.1 MG/ML 5ML SYR IV PRN; -BUPIVACAINE 0.25% 30 ML VIAL ONE; -BUPIVACAINE 0.5 % 5 MG/1 ML PF 10ML VIAL ONE; -CEFAZOLIN 2000 MG/60 ML D5W 60 ML IV SCH; +CEFAZOLIN 2000MG IV PUSH 15 ML IV SCH; +CMD/3 PO; -CeleBREX 200 MG CAP PO SCH; -EpHEDrine SULFATE INJ 50 MG/ML AMP IV PRN; -FENTANYL CITRATE INJ 50 MCG/1 ML 2 ML VIAL IV PRN; -HYDR-4079 PO; -LACTATED RINGER'S 1000ML IV SCH; -ONDANSETRON INJ 2 MG/ML 2 ML VIAL IV PRN; +ROPIVACAINE 5MG/ML 30 ML 150 MG, BUPIVACAINE 0.5% MPF INJ 30 ML, EpINEphrine HCL INJ 0.... INFIL SCH; -ROPIVACAINE 5MG/ML 30 ML 150 MG, BUPIVACAINE/EPINEPHR 0.5% MPF 30 ML, DEXAMETHASONE INJ... INFIL SCH; -ROPIVACAINE 5MG/ML 30 ML 150 MG, BUPIVACAINE/EPINEPHR 0.5% MPF 30 ML, KETOROLAC TROMETH... INFIL SCH
[2017-10-25] MEDS ORDERED: BUPIVACAINE 0.5 % 5 MG/1 ML PF 10ML VIAL ONE (06:29)
[2017-10-25] MEDS ORDERED: PROPOFOL IV EMULSION 10 MG/ML 20 ML VIAL ONE ×5 (07:06→12:15)
[2017-10-25] MEDS ORDERED: ONDANSETRON INJ 2 MG/ML 2 ML VIAL ONE (07:06)
[2017-10-25] MEDS ORDERED: LIDOCAINE HCL 2% 2 ML VIAL (20MG/ML) ONE (07:06)
[2017-10-25] MEDS ORDERED: FENTANYL CITRATE INJ 50 MCG/1 ML 2 ML VIAL ONE (07:06)
[2017-10-25] MEDS ORDERED: MIDAZOLAM HCL 1 MG/ML 2ML VIAL ONE ×2 (07:06→09:56)
[2017-10-25] MEDS ORDERED: DEXAMETHASONE SOD INJ 4 MG/ML VIAL ONE (07:06)
[2017-10-25 07:10] LABS: PTT PATIENT 27.2 SECONDS (21.0-31.0)
[2017-10-25] MEDS ORDERED: POVIDONE-IODINE OP SOLN 30 ML BTL ONE (07:40)
[2017-10-25] MEDS ORDERED: BACITRACIN 50000 UNIT VIAL ONE (07:41)
[2017-10-25] MEDS ORDERED: HYDROmorphone INJ 2 MG/ML SYR/VIAL IV PRN (09:00)
[2017-10-25] MEDS ORDERED: ONDANSETRON INJ 2 MG/ML 2 ML VIAL IV PRN ×2 (09:00→12:30)
[2017-10-25] MEDS ORDERED: PHENYLEPHRINE 100MCG/ML 5ML SYR IV PRN (09:00)
[2017-10-25] MEDS ORDERED: EpHEDrine SULFATE INJ 50 MG/ML AMP IV PRN (09:00)
[2017-10-25] MEDS ORDERED: ATROPINE SULFATE 0.1 MG/ML 5ML SYR IV PRN (09:00)
[2017-10-25] MEDS: TRANEXAMIC ACID INJ 1,000 MG x 2 Bags IV SCH ×4 (09:28→13:24)
--- NOTE | 2017-10-25 11:56 | [facility] Post Operative Brief Note ---
Immediate Operative Summary Operative Date October 25, 2017. Pre-Operative Diagnosis Degenerative joint disease, right hip Post-Operative Diagnosis Same as preop Procedure(s) Performed Right Total Hip Arthroplasty, uncemented, anterior approach Surgeon Dr. Hummel [employer] Worker Surgeon(s) Chadwick Angelo PA-C Estimated Blood Loss 250 cc Findings Consistent with Post-Op Diagnosis Fluids (cc crystalloids) 1700 Specimens A: right femoral head Drains None Anesthesia Type MAC Spinal Regional Complication(s) none Disposition Disposition: Recovery Room / PACU
[2017-10-25] MEDS ORDERED: PHENYLEPHRINE HCL INJ 10 MG/ML VIAL ONE (12:15)
[2017-10-25] MEDS ORDERED: MoRPHine SULFATE 4 MG/ML 1 ML CARP\\VIAL IV PRN (12:30)
--- NOTE | 2017-10-25 12:30 | [facility] Operative Report ---
Operative Report Operative Date October 25, 2017. Pre-Operative Diagnosis Degenerative joint disease, right hip Post-Operative Diagnosis Same as preop Procedure(s) Performed Right Total Hip Arthroplasty, uncemented, anterior approach Surgeon Dr. Hummel Email Marketing Assistant Surgeon(s) Chadwick Angelo PA-C Estimated Blood Loss 250 cc Findings See dictated op note Fluids 1700 Specimens A: right femoral head Drains None Anesthesia Type MAC Spinal Regional Complication(s) none Disposition Recovery Room / PACU Indications The patient is a 72-year-old female who presents with severe progressive right hip DJD who has failed outpatient conservative treatments. I indicated the patient for a anterior total hip replacement and the risks and benefits were explained in detail which include but not limited to infection, bleeding, blood clot, damage to surrounding bone, nerves, vessels, soft tissue, hip dislocation , failure of the prosthesis, leg length discrepancy, need for additional surgery and . The patient agreed to proceed with replacement of the hip and informed consent was obtained. Appropriate clearances were obtained. Description of Procedure COMPONENTS USED: [employer] hip system: Acetabulum size 52, femur size 5 high offset, femoral head 36-3, liner 3652, acetabular screw 251. DESCRIPTION OF PROCEDURE: Following satisfactory spinal anesthesia, the patient was placed supine on the OR table. The left leg was placed in the well leg alejandro and the right leg in the traction device. The right leg was prepared with ChloraPrep and draped sterilely. Following a surgical time-out, an anterior approach in the interval between the sartorius and tensor muscles was completed. Circumflex femoral vessels were identified, tied and ligated. The anterior capular fat pad was removed and the capsulotomy was performed revealing the arthritic femoral neck and head. A femoral neck cut was made with reciprocating saw and the bone fragments removed. The acetabular self- retraining retractor was placed. Acetabular reaming was completed under fluoroscopic guidance, a 52 mm shell was impacted into an anatomic position and secured with a dome screw. Local anesthetic was placed and following irrigation , the polyethylene liner was placed. The femur was placed into position of external rotation, extension and adduction. Femoral canal was prepared up to the size 5 high offset. Trial reduction with a 36-3 neck length head showed good soft tissue tension, leg lengths restored, and good fit and fill of the proximal canal using fluoroscopic landmarks. The hip was dislocated. The trial component was removed. The final implant was placed. The hip was irrigated with sterile saline soluation and reduced. A Betadine soak was performed. After 3 minutes, the hip was once more irrigated with copious sterile saline solution with bacitracin. Uma- incisional soft tissue was injected utilizing [place] [employer] which includes a combination of Ropivicaine 0.5% 150mg, Bupivicaine 0.5%/Epinephrine 1 :200,000 30ml, Toradol 30mg, Dexamethasone 4mg, Ketamine 10mg, Clonidine 100mcg and NSS 30ml solution. The capsule was then closed with 1-0 Vicryl interrupted figure of eight sutures. The fascia was closed with a running suture of #1 Vicryl, the subcutaneous tissues with 2-0 Vicryl and the skin with a running subcuticular stitch of 3-0 V-Loc. Dermabond prineo and a dry dressing were applied. The patient tolerated the procedure well and was transported to PACU in stable condition. Due to the complex nature of the procedure, the entire surgery was performed with the operational assistance of Susy Angelo PA-C. The assistant manager quality management, under direct supervision, was involved in the actual performance of all aspects of the surgical procedure including patient positioning, hemostasis, tissue retraction, instrument management and wound closure. I attest to the content of the Intraoperative Record and any orders documented therein. Any exceptions are noted below.
--- NOTE | 2017-10-25 13:04 | DIAGNOSTIC IMAGING REPORT ---
SINGLE VIEW PELVIS; SINGLE VIEW RIGHT HIP CLINICAL HISTORY: Postoperative examination. FINDINGS: An AP portable view of the hips and pelvis with a crosstable lateral portable view of the right hip are obtained. A bipolar right hip arthroplasty is in near-anatomic alignment. A single cortical lag screw transfixes the acetabular cup. There is a questionable lucency involving the femoral shaft distal to the tip of the arthroplasty stem suggested on the lateral view. A small nondistracted fracture is not excluded. No additional findings are concerning for acute fracture. There are expected postoperative changes overlying the right hip including skin clips, a surgical drain, and soft tissue swelling. Moderate arthritic change is seen in the left hip. IMPRESSION: 1. There is a cortical lucency seen just distal to the tip of the arthroplasty stem. A nondistracted fracture is not excluded. Correlation with dedicated femur views is recommended. 2. No additional findings are concerning for acute fracture. 3. Expected postoperative findings are present around the right hip. Electronically signed by: Be Martínez M.D. 10/25/2017 1:03 PM Dictated Date/Time: 10/25/2017 1:00 PM
--- NOTE | 2017-10-25 13:15 | Anesthesiology Progress Note ---
Anesthesia Post Op Note Date & Time October 25, 2017 at 13:15 Vital Signs Pain Intensity: 0 Vital Signs Past 12 Hours Date Time Temp Pulse Resp B/P (MAP) Pulse Ox O2 Delivery O2 Flow Rate FiO2 10/25/17 12:50 36.3 67 16 105/63 100 Nasal Cannula 2 10/25/17 12:40 68 16 126/63 99 Nasal Cannula 3 10/25/17 12:30 67 16 121/61 99 Nasal Cannula 3 10/25/17 12:21 36.5 67 16 110/55 98 Nasal Cannula 3 10/25/17 06:28 36.4 72 20 174/75 98 Room Air Notes Mental Status: alert / awake / arousable, participated in evaluation Pt Amnestic to Procedure: Yes Nausea / Vomiting: adequately controlled Pain: adequately controlled Airway Patency, RR, SpO2: stable & adequate BP & HR: stable & adequate Hydration State: stable & adequate Anesthetic Complications: no major complications apparent
--- NOTE | 2017-10-25 13:39 | DIAGNOSTIC IMAGING REPORT ---
R HIP UNILATERAL 1 VIEW CLINICAL HISTORY: RT ANTERIOR TOTAL COMPARISON STUDY: No previous studies for comparison. Fluoroscopy time: 66.8 seconds. FINDINGS: 2 fluoroscopic images demonstrate anatomic alignment of the right hip arthroplasty. Acetabular screw is noted. There are no unexpected radiopaque foreign bodies. No fracture is identified. IMPRESSION: Expected findings following total right hip arthroplasty. Electronically signed by: Poli Cruz M.D. 10/25/2017 1:13 PM Dictated Date/Time: 10/25/2017 1:13 PM
--- NOTE | 2017-10-25 14:14 | DIAGNOSTIC IMAGING REPORT ---
R PELVIS/UNILATERAL HIP 2-3VIEWS CLINICAL HISTORY: 72 years-old Female presenting with R/O femur fx near tip of the stem. TECHNIQUE: Single frontal view of the pelvis and frontal and crosstable lateral views of the right hip were obtained. COMPARISON: 10/25/2017 at 12:42 PM. FINDINGS: Previously noted oblique lucency near the tip of the femoral stem component likely represents a nutrient canal. No convincing evidence of a periprosthetic fracture status post total right hip arthroplasty. No malalignment or other hardware complication is apparent. Expected soft tissue emphysema and overlying skin nichole. The bladder is distended. The bony pelvis and left hip are grossly normal. IMPRESSION: 1. Expected postsurgical appearance status post total right hip arthroplasty. No periprosthetic fracture. The previously noted finding likely correlates with a nutrient canal. Electronically signed by: Ruddy Doss M.D. 10/25/2017 2:12 PM Dictated Date/Time: 10/25/2017 2:11 PM
[2017-10-25] MEDS: ACETAMINOPHEN 500 MG TAB PO SCH ×2 (15:11→21:13)
[2017-10-25] MEDS ORDERED: WARFARIN SOD 5 MG TAB PO ONE (16:00)
--- NOTE | 2017-10-25 16:10 | Anesthesiology Progress Note ---
Anesthesia Post Op Note Date & Time October 25, 2017 at 16:06 Vital Signs Pain Intensity: 0 Vital Signs Past 12 Hours Date Time Temp Pulse Resp B/P (MAP) Pulse Ox O2 Delivery O2 Flow Rate FiO2 10/25/17 15:14 36.3 68 15 137/72 (93) 95 Room Air 10/25/17 14:15 66 15 125/74 (91) 100 10/25/17 13:15 Nasal Cannula 2.0 10/25/17 13:15 36.4 65 16 123/75 (91) 99 Nasal Cannula 2.0 10/25/17 12:50 36.3 67 16 105/63 100 Nasal Cannula 2 10/25/17 12:40 68 16 126/63 99 Nasal Cannula 3 10/25/17 12:30 67 16 121/61 99 Nasal Cannula 3 10/25/17 12:21 36.5 67 16 110/55 98 Nasal Cannula 3 10/25/17 06:28 36.4 72 20 174/75 98 Room Air Notes Mental Status: alert / awake / arousable, participated in evaluation Pt Amnestic to Procedure: Yes Nausea / Vomiting: adequately controlled Pain: adequately controlled Airway Patency, RR, SpO2: stable & adequate BP & HR: stable & adequate Hydration State: stable & adequate Pt feels like there something "in her eye", examined the patients eye no apparent foreign body present. Eye is reddened and tearing. Pt state that it "doesn't hurt just feels annoying". Stated she first noticed this at some point in recovery as she was waking up. Pt otherwise happy and satisfied with anesthetic care, comfortable with no other complaints. Dr. Anderson notified of patients symptoms.
[2017-10-25] MEDS: FUROSEMIDE 40 MG TAB PO SCH (16:30)
[2017-10-25] MEDS: FLECAINIDE ACETATE 100 MG TAB PO SCH ×2 (16:30→21:12)
[2017-10-25] MEDS: CARVEDILOL 12.5 MG TAB PO SCH ×2 (16:30→21:12)
--- NOTE | 2017-10-25 17:53 | Orthopedic Progress Note ---
Orthopedic Progress Note Date of Service October 25, 2017. Subjective Additional Notes: Postoperative progress note Patient seen lying in bed, no acute issues, pain well controlled. Objective No apparent distress, alert and oriented 3 Right lower extremity neurovascularly sensory intact, 2 dorsalis pedis pulse, compartments soft nontender, right anterior hip incisional VAC intact. Date Time Temp Pulse Resp B/P (MAP) Pulse Ox O2 Delivery O2 Flow Rate FiO2 10/25/17 16:14 36.4 71 16 157/72 (100) 95 Room Air 10/25/17 15:14 36.3 68 15 137/72 (93) 95 Room Air 10/25/17 14:15 66 15 125/74 (91) 100 10/25/17 13:15 Nasal Cannula 2.0 10/25/17 13:15 36.4 65 16 123/75 (91) 99 Nasal Cannula 2.0 10/25/17 12:50 36.3 67 16 105/63 100 Nasal Cannula 2 10/25/17 12:40 68 16 126/63 99 Nasal Cannula 3 10/25/17 12:30 67 16 121/61 99 Nasal Cannula 3 10/25/17 12:21 36.5 67 16 110/55 98 Nasal Cannula 3 10/25/17 06:28 36.4 72 20 174/75 98 Room Air Laboratory Results 24 Hours: Test 10/25/17 06:49 Prothromb Time International Ratio 1.0 Prothrombin Time 10.8 SECONDS Assessment & Plan Assessment: Status post right anterior total hip arthroplasty Plan: -Ancef x24 -DVT prophylaxis-Lovenox to Coumadin bridge -Maintain incisional VAC -Weight-bear as tolerates right lower extremity -PT/OT -A.m. labs -Postop x-ray: Well aligned well fixed right total hip prosthesis without evidence of fracture or dislocation
[2017-10-25] MEDS: CEFAZOLIN IV 2,000 MG in SYRINGE 0 ML IV SCH (18:16)
[2017-10-25] MEDS: ERYTHROMYCIN OP OINT 5 MG/GM 3.5 GM TUBE OP SCH (18:17)
[2017-10-25] MEDS: DOCUSATE SODIUM 100 MG CAP PO SCH (21:00)
[2017-10-25] MEDS ORDERED: ATORVASTATIN 40 MG TAB PO SCH (21:00)
[2017-10-25] MEDS ORDERED: SENNA 8.6 MG TAB PO SCH (21:00)
[2017-10-25] MEDS ORDERED: CALCITRIOL 0.5 MCG CAP PO SCH (21:00)
[2017-10-25] MEDS: OXYCODONE HCL IR 5 MG TAB (IMMEDIATE RELEASE) PO PRN (21:11)
[2017-10-25] MEDS: SODIUM CHLORIDE 0.9% 1000ML 1,000 ML IV SCH (21:12)
[2017-10-25] MEDS ORDERED: NURSING VERBAL MED ORDER ONE (21:15)
[2017-10-26 00:10] VITALS: O2SAT 98
[2017-10-26] MEDS: ERYTHROMYCIN OP OINT 5 MG/GM 3.5 GM TUBE OP SCH ×3 (00:12→13:15)
[2017-10-26] MEDS: CEFAZOLIN IV 2,000 MG in SYRINGE 0 ML IV SCH (02:37)
[2017-10-26 03:25] VITALS: BP 101/55; PULSE 53; TEMP 36.5; O2SAT 99
[2017-10-26] MEDS: ACETAMINOPHEN 500 MG TAB PO SCH ×2 (05:38→13:16)
[2017-10-26] MEDS ORDERED: LEVOTHYROXINE 100 MCG TAB PO SCH (06:00)
[2017-10-26 06:48] LABS: HEMATOCRIT 32.6 % (37-47); HEMOGLOBIN 11.1 g/dL (12.0-16.0); IG# 0.04 K/uL (0.00-0.02); LYMPH % 7.7 %; LYMPH ABS # 0.92 K/uL (1.2-3.4); MEAN CELL VOLUME 89.6 fL (80-100); MEAN CORPUSCULAR HEMOGLOBIN 30.5 pg (25-34); MEAN PLATELET VOLUME 9.4 fL (7.4-10.4); MONO % 11.5 %; MONO ABS # 1.37 K/uL (0.11-0.59); NEUT % 80.5 %; NEUT ABS # 9.58 K/uL (1.4-6.5); PLATELET COUNT 216 K/uL (130-400); RED CELL DISTRIBUTION WIDTH CV 13.8 % (11.5-14.5); WHITE BLOOD COUNT 11.91 K/uL (4.8-10.8)
[2017-10-26] MEDS: SODIUM CHLORIDE 0.9% 1000ML 1,000 ML IV SCH (07:11)
[2017-10-26 07:26] LABS: CALCIUM 8.7 mg/dl (8.5-10.1); CREATININE 1.12 mg/dl (0.60-1.20)
[2017-10-26 07:35] VITALS: BP 103/50; PULSE 53; TEMP 36.5; O2SAT 98
[2017-10-26] MEDS ORDERED: ENOXAPARIN 40 MG/0.4 ML SYR SQ SCH (08:00)
[2017-10-26] MEDS ORDERED: ONDA-170 PO (08:07)
[2017-10-26] MEDS ORDERED: LVNIS40 SQ (08:07)
[2017-10-26] MEDS ORDERED: RXC5 PO (08:07)
[2017-10-26] MEDS ORDERED: ACET-1256 PO (08:07)
--- NOTE | 2017-10-26 08:09 | Discharge Instructions ---
Discharge Instructions Date of Service October 26, 2017. Admission Reason for Admission: Right Hip Osteoarthritis Discharge Discharge Diagnosis / Problem: sp right kiersten Discharge Goals Goal(s): Decrease discomfort, Improve function, Increase independence Activity Recommendations Activity Limitations: per Instructions/Follow-up section . Instructions / Follow-Up Instructions / Follow-Up ACTIVITY RECOMMENDATIONS: SELF CARE INSTRUCTIONS AFTER TOTAL HIP REPLACEMENT Until the incision and soft tissues around your hip have healed, there is a possibility that the hip prosthesis could dislocate. A. Observe the following precautions to prevent dislocation: 1. Don't bend your hip greater than 90 degrees. 2. Avoid crossing your legs or ankles while standing or lying. 3. Sit with your feet placed 6 inches apart. 4. When sitting, keep your knees below your hips. Sit on a firm surface, avoid deep, soft chairs and couches. Use an elevated toilet seat in the bathroom. 5. Don't bend over at the waist. Use a long handled shoehorn and a sock aid to help you put on your shoes and socks. A broadcast meteorologist can help you pickling operator objects that are too high or too low to reach. 6. Keep car riding to a minimum for at least one month after surgery. B. Your balance may be shaky for a while. Use crutches or a walker until directed by your doctor. C. Use hand rails when walking on stairs. D. Wear low heeled shoes with non-slip soles. E. Be sure that your floors are free of things that could trip you - throw rugs , electrical cords, small objects. Avoid wet and waxed floors, especially with crutches and canes. F. Try to walk several times a day with rest periods between. G. Continue with all the exercises taught to you in the hospital. Again, make walking a part of your daily routine. SPECIAL CARE INSTRUCTIONS: VERY IMPORTANT TO READ AND REVIEW A. You may still be at risk for phlebitis and blood clots. 1. Wear surgical stockings (CARTER hose) for 2 weeks after surgery to improve circulation and reduce swelling. 4. If you are on Coumadin normally, your family doctor/car cooper should monitor your blood work. Expect a phone call the day of or the day after bloodwork is drawn to adjust your dosage. CONTINUE LOVENOX INJECTIONS UNTIL INR >1.8. FOLLOW WITH PCP/COUMADIN CLINIC FOR DOSING RECOMMENDATIONS. B. You must take antibiotics before having dental work, bladder, bowel and other surgery. Your doctor will provide you with a permanent card to carry describing precautions. C. Call [facility] if you have a fever, redness or swelling around the incision, cloudy drainage from incision, or sudden increase in pain in your hip, not relieved by your regular pain medication. D. Please call the office at if you have any concerns or questions about your operation or recovery. * YOU MAY SHOWER, NO TUB BATHS UNTIL CLEARED BY YOUR DOCTOR. * WEAR CARTER HOSE 20 HOURS PER DAY FOR 2 WEEKS. * YOU SHOULD USE A WALKER OR CRUTCHES FOR 2-4 WEEKS. THIS WILL HELP PREVENT STRAIN ON YOUR HIP MUSCLE AND ALLOW IT TO HEAL PROPERLY. YOU MAY WEAN TO A CANE TOLERATED. * MOST PATIENTS WILL HAVE HOME NURSING FOR THERAPY. IF YOU DECIDE TO DO OUTPATIENT PHYSICAL THERAPY, PLEASE SCHEDULE THIS 3 TIMES PER WEEK. * Prevena- This is a large suction dressing covering your incision. This will help pull any excess drainage from the wound and allow your incision to heal properly. You may shower with this if you can keep the unit outside of the shower. If any bleeding or leakage is noted please call your doctor's office. This will remain on your incision for 7 days and then should be removed. This can be done yourself or by the home nursing staff if applicable. The entire unit is disposable once removed. Once removed, keep incision clean and dry. If redness or drainage is noted, please call your surgeon. FOLLOW UP VISIT: If appointment is not already scheduled: Please call [facility] to make a follow-up appointment for 2 weeks after your surgery at . Current Hospital Diet Patient's current hospital diet: Regular Diet, AHA Diet (Heart Healthy) Discharge Diet Recommended Diet: Regular Diet Procedures Procedures Performed: Right Total Hip Arthroplasty, uncemented, anterior approach Pending Studies Studies pending at discharge: no Laboratory Results Hemoglobin A1c Test 10/13/17 15:23 Range/Units Estimated Average Glucose 117 mg/dl Hemoglobin A1c 5.7 H 4.5-5.6 % Medical Emergencies . Who to Call and When: Medical Emergencies: If at any time you feel your situation is an emergency, please call [phone] immediately. . Non-Emergent Contact Non-Emergency issues call your: Surgeon . "Provider Documentation" section prepared by Nadja Angelo. .
[2017-10-26] MEDS: DOCUSATE SODIUM 100 MG CAP PO SCH (08:28)
[2017-10-26] MEDS: CARVEDILOL 12.5 MG TAB PO SCH (08:29)
[2017-10-26] MEDS: FUROSEMIDE 40 MG TAB PO SCH (08:29)
[2017-10-26] MEDS: FLECAINIDE ACETATE 100 MG TAB PO SCH (08:31)
[2017-10-26] MEDS ORDERED: PANTOprazole SOD 40 MG TAB PO SCH (09:00)
[2017-10-26] MEDS ORDERED: MULTIVITAMIN TAB PO SCH (09:00)
--- NOTE | 2017-10-26 10:14 | Orthopedic Progress Note ---
Orthopedic Progress Note Date of Service October 26, 2017. Subjective Post OP Day: 1 Reports: feeling well, Denies: complaints Additional Notes: Patient seen at bedside, comfortable, pain well controlled, no acute issues overnight. Objective No apparent distress, alert and oriented 3 Right lower extremity neurovascularly sensory intact, 2 dorsalis pedis pulse, compartments soft nontender, right anterior hip incisional VAC intact. Date Time Temp Pulse Resp B/P (MAP) Pulse Ox O2 Delivery O2 Flow Rate FiO2 10/26/17 08:23 36.5 53 14 98 Room Air 10/26/17 07:35 36.5 53 14 103/50 (67) 98 Room Air 10/26/17 07:28 Room Air 10/26/17 03:25 36.5 53 16 101/55 (70) 99 Room Air 10/26/17 00:10 98 Room Air 2.0 10/25/17 23:37 36.4 57 14 121/68 (85) 97 Room Air 10/25/17 21:09 62 153/70 (97) 10/25/17 19:55 36.4 62 16 148/74 (98) 98 Room Air 10/25/17 16:14 36.4 71 16 157/72 (100) 95 Room Air 10/25/17 15:14 36.3 68 15 137/72 (93) 95 Room Air 10/25/17 15:10 Room Air 10/25/17 14:15 66 15 125/74 (91) 100 10/25/17 13:15 Nasal Cannula 2.0 10/25/17 13:15 36.4 65 16 123/75 (91) 99 Nasal Cannula 2.0 10/25/17 12:50 36.3 67 16 105/63 100 Nasal Cannula 2 10/25/17 12:40 68 16 126/63 99 Nasal Cannula 3 10/25/17 12:30 67 16 121/61 99 Nasal Cannula 3 10/25/17 12:21 36.5 67 16 110/55 98 Nasal Cannula 3 Laboratory Results 24 Hours: Test 10/26/17 06:32 White Blood Count 11.91 K/uL Red Blood Count 3.64 M/uL Hemoglobin 11.1 g/dL Hematocrit 32.6 % Mean Corpuscular Volume 89.6 fL Mean Corpuscular Hemoglobin 30.5 pg Mean Corpuscular Hemoglobin Concent 34.0 g/dl Platelet Count 216 K/uL Mean Platelet Volume 9.4 fL Neutrophils (%) (Auto) 80.5 % Lymphocytes (%) (Auto) 7.7 % Monocytes (%) (Auto) 11.5 % Eosinophils (%) (Auto) 0.0 % Basophils (%) (Auto) 0.0 % Neutrophils # (Auto) 9.58 K/uL Lymphocytes # (Auto) 0.92 K/uL Monocytes # (Auto) 1.37 K/uL Eosinophils # (Auto) 0.00 K/uL Basophils # (Auto) 0.00 K/uL Prothromb Time International Ratio 1.0 Prothrombin Time 10.9 SECONDS Assessment & Plan Assessment: Status post right anterior total hip arthroplasty POD#1 Plan: -Ancef x24 -DVT prophylaxis-Lovenox to Coumadin bridge, chronic home medication -Maintain incisional VAC x 7 days -Weight-bear as tolerates right lower extremity -PT/OT -A.m. labs - Hgb 11.1 -Postop x-ray: Well aligned well fixed right total hip prosthesis without evidence of fracture or dislocation -DC planning - home with , likely today
[2017-10-26 12:15] VITALS: BP 126/73; PULSE 65; O2SAT 99
[2017-10-26 12:23] VITALS: BP 145/77; PULSE 62; TEMP 36.6; O2SAT 99
[2017-10-26] MEDS: OXYCODONE HCL IR 5 MG TAB (IMMEDIATE RELEASE) PO PRN (13:45)
[2017-10-26] MEDS ORDERED: WARFARIN SOD 5 MG TAB PO ONE (16:00)
--- NOTE | 2017-10-28 13:24 | DISCHARGE SUMMARY ---
DISCHARGE DIAGNOSIS: Degenerative joint disease, right knee. SECONDARY DIAGNOSIS: None. CONSULTS: None. COMPLICATIONS: None. PROCEDURE: The patient underwent a right total hip arthroplasty with Dr. Hummel 10/25/2017. BRIEF HISTORY: Please see previously dictated history and physical. HOSPITAL SUMMARY: The patient was admitted on the above day for the above procedure. Procedure went without complication. Postop day 1, the patient was feeling well without complaints. Vital signs were stable. She was afebrile. Dressing was clean, dry and intact with Prevena. She was neurovascularly intact. Calves were soft and nontender. Hemoglobin was stable at 11.1. The patient began physical therapy per protocol. She tolerated this well. The patient resumed her Coumadin postoperatively. She was transitioning with Lovenox until INR was therapeutic. She was discharged to home later that day in stable condition. For further review please see the chart. Lab, x-ray data and discharge instructions as per chart.
== END 2017-10-26 14:51 | disposition home health service (06) | DRG 470 ==
LOC: C.ACU 06:03 → C.3E 06:49 → EDBEDREQ 12:36 → ENRESERV 12:43
PROVIDERS: ADMIT Orthopaedic Surgery; ATTEND Orthopaedic Surgery
PROC: 0SR90JA Replacement of Right Hip Joint with Synthetic Substitute, Uncemented, Open Approach (ICD-10-PCS; principal; 2017-10-25 09:00)
DX: M16.11 Unilateral primary osteoarthritis, right hip (principal); I50.9 Heart failure, unspecified; E78.5 Hyperlipidemia, unspecified; I11.0 Hypertensive heart disease with heart failure; E07.9 Disorder of thyroid, unspecified; I48.91 Unspecified atrial fibrillation